=== PATIENT | female | born 1965 | race African-American/Black ===

== ENCOUNTER 2017-04-17 21:35 | Emergency (ER) | payer MEDICAID, OTHER ==
[~2017-04-17] VITALS: Ht 157.5 cm; Wt 79.0 kg
[2017-04-18] MEDS ORDERED: KETOROLAC 60MG/2ML VIAL IM ONE (00:15)
[2017-04-18] MEDS ORDERED: AMLODIPINE 2.5MG TABLET PO ONE (00:30)
[2017-04-18 00:54] VITALS: BP 169/108
== END 2017-04-18 01:05 | disposition home or self-care (01) ==
LOC: ER 21:35
DX: M25.562 Pain in left knee (principal); I10 Essential (primary) hypertension
CPT/HCPCS: 96372; 99283; J1885; L1830

== ENCOUNTER 2017-07-08 09:53 | Emergency (ER) | payer MEDICAID ==
[~2017-07-08] VITALS: Ht 170.2 cm; Wt 77.0 kg
[2017-07-08] MEDS ORDERED: AMLO2.5T45 PO (10:12)
[2017-07-08 13:01] VITALS: BP 131/89
== END 2017-07-08 13:42 | disposition home or self-care (01) ==
LOC: ER 09:53
DX: M71.22 Synovial cyst of popliteal space [Baker], left knee (principal); S80.10XA Contusion of unspecified lower leg, initial encounter; I10 Essential (primary) hypertension; X58.XXXA Exposure to other specified factors, initial encounter; Y93.89 Activity, other specified; Y92.89 Other specified places as the place of occurrence of the external cause
CPT/HCPCS: 93971; 99284

== ENCOUNTER 2019-06-21 11:30 | Emergency (ER) | payer MEDICAID ==
[~2019-06-21] VITALS: Ht 170.2 cm; Wt 77.0 kg
[~2019-06-21 11:30] MED LIST: AMLO2.5T45 PO
[2019-06-21] MEDS ORDERED: DEXAMETHASONE 10 MG/ML VIAL IM ONE (12:00)
[2019-06-21] MEDS ORDERED: DIPHENHYDRAMINE 50MG CAPSULE PO ONE (12:00)
[2019-06-21 12:31] VITALS: BP 122/84
== END 2019-06-21 12:39 | disposition home or self-care (01) ==
LOC: ER 11:30
DX: T78.40XA Allergy, unspecified, initial encounter (principal); H02.843 Edema of right eye, unspecified eyelid; H02.846 Edema of left eye, unspecified eyelid; I10 Essential (primary) hypertension; X58.XXXA Exposure to other specified factors, initial encounter
CPT/HCPCS: 96372; 99283; J1100; Q0163

== ENCOUNTER 2021-03-28 04:49 | Emergency (ER) | payer MEDICAID ==
[~2021-03-28] VITALS: Ht 167.6 cm; Wt 68.0 kg
[2021-03-28] MEDS ORDERED: AMOX-424 MT (05:35)
[2021-03-28] MEDS ORDERED: ACET-2708 MT (05:35)
[2021-03-28 05:45] VITALS: BP 145/85
== END 2021-03-28 06:12 | disposition home or self-care (01) ==
LOC: ER 04:49
DX: S31.159A Open bite of abdominal wall, unspecified quadrant without penetration into peritoneal cavity, initial encounter (principal); L40.9 Psoriasis, unspecified; I10 Essential (primary) hypertension; W54.0XXA Bitten by dog, initial encounter; Y93.9 Activity, unspecified; Y92.9 Unspecified place or not applicable
CPT/HCPCS: 99283

== ENCOUNTER 2022-12-16 13:59 | Emergency (ER) | payer MEDICAID, OTHER ==
[~2022-12-16] VITALS: Ht 167.6 cm; Wt 75.0 kg
[~2022-12-16 13:59] MED LIST changes: +ACET-2708 MT; +AMOX-424 MT
[2022-12-16 20:32] VITALS: BP 155/92
[2022-12-16 21:07] LABS: BASOPHILS % 0.5 % (0.0-2.0); EOSINOPHILS % 2.2 % (0.0-5.0); HEMATOCRIT. 45.7 % (36.0-48.0); HEMOGLOBIN. 15.2 g/dL (12.0-16.0); LYMPHOCYTES % 42.3 % (20.0-50.0); MEAN CORPUSCULAR HEMOGLOBIN 29.1 pg (28.0-32.0); MEAN CORPUSCULAR VOLUME 87.2 fL (81.0-99.0); MEAN PLATELET VOLUME 7.4 fl (7.4-10.4); MONOCYTES % 10.6 % (2.0-8.0); NEUTROPHILS % 44.4 % (40.0-76.0); PLATELET 210 x1000/uL (130-400); RED BLOOD CELL COUNT 5.24 mill/uL (4.2-5.4); RED CELL DISTRIBUTION WIDTH 14.2 % (11.6-14.6)
[2022-12-16 21:09] LABS: CHLORIDE 106 mEq/L (98-107)
[2022-12-16 21:12] LABS: INR 0.9; PROTHROMBIN TIME 10.2 sec (9.6-11.0)
[2022-12-16 21:25] LABS: T4 FREE 0.87 ng/dL (0.76-1.46)
[2022-12-16 21:33] LABS: CLARITY URINE CLEAR (CLEAR); COLOR URINE YELLOW (YELLOW); KETONES URINE NEGATIVE (NEGATIVE); LEUKOCYTE ESTERASE URINE NEGATIVE (NEGATIVE); NITRITE URINE NEGATIVE (NEGATIVE); OCCULT BLOOD URINE NEGATIVE (NEGATIVE); PROTEIN URINE NEGATIVE (NEGATIVE); SPECIFIC GRAVITY URINE 1.009 (1.005-1.030); UROBILINOGEN URINE 0.2 E.U./dL (0.2-1.0)
== END 2022-12-16 22:49 | disposition home or self-care (01) ==
LOC: ER 13:59
DX: R42 Dizziness and giddiness (principal); R00.2 Palpitations; I10 Essential (primary) hypertension
CPT/HCPCS: 36415; 71045; 80053; 81003; 83880; 84439; 84443; 84481; 84484; 85025; 93005; 99285

== ENCOUNTER 2025-09-18 14:16 | Emergency (ER) | payer OTHER ==
[~2025-09-18] VITALS: Ht 167.6 cm; Wt 71.0 kg
[2025-09-18 14:28] VITALS: O2SAT 99
[2025-09-18] MEDS: DIPHENHYDRAMINE 25MG CAPSULE PO ONE (16:36)
[2025-09-18] MEDS: DEXAMETHASONE 10 MG/ML VIAL IM ONE (16:36)
[2025-09-18] MEDS ORDERED: DIPH25TA62 MT (17:52)
[2025-09-18] MEDS ORDERED: CETI10CA11 MT (17:52)
[2025-09-18 18:08] VITALS: BP 136/86; PULSE 88; RESP 18; TEMP 36.8; O2SAT 100
== END 2025-09-18 18:10 | disposition home or self-care (01) ==
LOC: ER 14:16
DX: T78.40XA Allergy, unspecified, initial encounter (principal); I10 Essential (primary) hypertension; Z79.899 Other long term (current) drug therapy; X58.XXXA Exposure to other specified factors, initial encounter
CPT/HCPCS: 99283; 96372; Q0163; J1100